=== PATIENT | male | born 2000 | race Caucasian/White ===

== ENCOUNTER 2019-09-22 19:19 | Inpatient (IN) | payer OTHER, SELFPAY ==
[2019-09-22 19:20] VITALS: BP 137/77; PULSE 82; RESP 18; TEMP 36.7; O2SAT 100; BMI 21.9
--- NOTE | 2019-09-22 19:39 | ED.DCSUM_ITS ---
- ER Visit Summary Date of Service: 09/22/19 Chief Complaint: Abdominal pain History of Present Illness: The patient is a 19 M who presents with abdominal pain, nausea, vomiting, and diarrhea for the past 2 weeks. Patient states the pain became worse yesterday and is been constant. Patient states the pain is been intermittent prior to that. Patient has been seen twice at [facility]. Patient had a CT scan done there 2 weeks ago and was normal. Patient was seen there earlier today and had lab work drawn which was normal. Patient states she was given a prescription for Bentyl which she has been taking with no relief. Patient states his pain is worse after eating certain foods. Patient describes the pain is sharp. Patient states pain is worse of the left upper quadrant. Patient admits to nausea and vomiting but denies any hematemesis or coffee-ground emesis. Patient admits to diarrhea but denies any melena or hematochezia. Patient denies any dysuria or hematuria. Physical Examination: Vital signs are stable. Patient is afebrile. Patient is in no acute distress. Oral mucosa is pink and moist. Oropharynx is clear. Neck is supple. Trachea is midline. There is no JVD. Heart was regular rate and rhythm. Lungs are clear and equal bilateral. Abdomen is soft. Bowel sounds are normal. There is left upper quadrant tenderness. There is voluntary guarding on exam. There is no rebound. Cranial nerves II through XII are intact. There are no focal motor or sensory deficits noted. Extremities are intact. There is no calf tenderness or edema. Test Results: CBC shows a mild leukocytosis of 11.3. Comprehensive metabolic p rofile showed a slightly elevated total bilirubin of 1.7. Urinalysis was within normal limits. Acute abdominal x-rays were obtained. There is probable ileus however a early small bowel obstruction is unable to be excluded. CT scan of the abdomen pelvis was obtained. There is small bowel narrowing at the terminal ileum. There is some thickening of the distal small bowel questionable Crohn's. These were interpreted by the radiologist and reviewed by myself. Emergency Department Course and Treatment: Patient was given IV fluids, morphine, and Zofran initially. Patient was given repeat doses of morphine due to persistent pain. Case was discussed with Dr. Maldonado, surgeon on-call. He recommended admitting to the hospitalist and will be available for consult if they want. He had no further recommendations. Case was discussed with the hospitalist. He will admit the patient to his service. Patient and family understood and were agreeable with the plan. All questions were answered. Disposition: Admit to hospital Impression: 1. Small bowel obstruction This note was generated with [employer] dictation software. It may contain incorrect words, spelling, and punctuation that were not noted in review of the chart prior to signing ED Disposition - Plan for ED Patient: Disposition: Acute Care Hospital [facility] Diagnosis: Small bowel obstruction Referrals: Ciaran Lombardo MD [STAFF PHYSICIAN] -
[2019-09-22] MEDS: Ondansetron 4 MG/2 ML Vial IV (19:57)
[2019-09-22] MEDS: 0.9% Normal Saline 1,000 ML 1000 ML IV (19:57)
[2019-09-22] MEDS: Morphine 4 MG/ML Syringe IV ×3 (19:58→23:17)
[2019-09-22 20:07] LABS: Absolute Lymphocyte Count 2.48 X10^3/uL (0.83-4.51); Absolute Neutrophil Count 7.2 X10^3/uL (2.0-7.7); Basophil# 0.03 X10^3/uL; Basophil% 0.3 % (0-1); Eosinophil# 0.26 X10^3/uL; Eosinophils% 2.3 % (0-5); Hematocrit 47.5 % (40-54); Hemoglobin 16.4 g/dL (13.0-16.5); Lymphocyte # 2.48 X10^3/ul (4.0); Lymphocyte % 21.9 % (19-41); Mean Corp Hgb Conc 34.5 g/dL (32-36); Mean Corpuscular Hgb 28.4 pg (27.0-32.0); Mean Corpuscular Volume 82.3 fL (80-94); Mean Platelet Vol. 9.7 fl (6.2-12.0); Monocyte# 1.29 X10^3/uL; Monocyte% 11.4 % (0-10); NRBC Flagged by Analyzer 0 % (0-5); Neutrophil # 7.22 X10^3/uL (2.7-7.7); Neutrophil % 63.8 % (47-70); Platelet Count 288 K/mm3 (150-450); RBC Distribution Width CV 12.2 % (11.6-14.6); RBC Distribution Width SD 36.7 fl (35.1-43.9); Red Blood Count 5.77 M/mm3 (4.6-6.2); White Blood Count 11.3 K/mm3 (4.4-11.0)
--- NOTE | 2019-09-22 20:10 | RAD_ITS ---
STUDY: X-RAY - ACUTE ABDOMINAL SERIES REASON FOR EXAM: Male, 19 years old. abdomen pain, vomiting TECHNIQUE: Single view of the chest. Supine, and upright view(s) of the abdomen were obtained. COMPARISON: None. FINDINGS: The lungs are clear and expanded. Normal size heart. Normal mediastinum and esperanza. Normal visualized pulmonary arteries. Normal visualized aortic arch and descending thoracic aorta. Stomach is distended demonstrating air-fluid level. There are also multiple loops of mildly distended small bowel with air-fluid levels. There is fecal material noted within the right colon. This most likely represents an ileus although early or partial small bowel obstruction is not entirely excluded. Recommend clinical correlation and follow-up studies The soft tissue structures of the abdomen and pelvis are unremarkable. Normal visualized osseous structures. RAD/Acute Abdomen Inc Chest IMPRESSION: Probable ileus. Cannot definitively exclude early small bowel obstruction. Clinical correlation recommended Electronically Signed: Macho Lepe MD at 20:23 EDT , Service support ,
[2019-09-22 20:24] LABS: ALB/GLOB Ratio 1.3 RATIO (0.9-2.4); AST(SGOT) 13 U/L (15-37); Alanine Aminotransfer ALT/SGPT 19 U/L (16-61); Albumin, Serum 4.2 g/dL (3.2-5.0); Alkaline Phosphatase 94 U/L (45-117); Anion Gap 8 (5-15); BUN 14 mg/dL (7-18); BUN/Creat Ratio 13.5 RATIO (10-20); Calcium,Total 9.2 mg/dL (8.5-10.1); Chloride 107 mmol/L (98-107); Creatinine, Serum 1.04 mg/dL (0.70-1.30); EST Glomerular Filtration Rate 96 mL/min (>60); Est Glom Filt Rate - Afr Amer 116 mL/min (>60); Estimated Creatinine Clearance 113.63 ml/min; Globulin 3.3 g/dL (2.2-4.2); Glucose 93 mg/dL (74-106); Lipase 107 U/L (73-393); Potassium 3.5 mmol/L (3.5-5.1); Protein, Total 7.5 g/dL (6.4-8.2); Sodium Level 142 mmol/L (136-145)
[2019-09-22 20:28] LABS: Bacteria 0 SEEN /hpf (None Seen); Mucous, Urine 0 SEEN /hpf (<or=2+)
[2019-09-22 20:34] LABS: Color, Urine Yellow (Yellow); Glucose, Dipstick Normal (Normal); Ketone-Dipstick 5 mg/dl (Negative); Leukocyte Esterase-Dipstick Negative /ul (Negative); Nitrite-Dipstick Negative (Negative); Occult Blood-Urine 25 /ul (Negative); Protein-Dipstick 15 mg/dl (Negative); Urine Bilirubin Dipstick Negative (Negative); Urine Clarity Clear (Clear); Urine Urobilinogen Normal (Normal)
--- NOTE | 2019-09-22 20:38 | CT_ITS ---
STUDY: CT ABDOMEN AND PELVIS WITH CONTRAST REASON FOR EXAM: Male, 19 years old. Increased abdominal pain for 1 month. Nausea, vomiting and diarrhea. RADIATION DOSAGE (If Supplied By Facility): CTDIvol = ( 10.61 ) mGy, DLP = ( 579.53 ) mGycm TECHNIQUE: Transaxial images were obtained from the dome of the diaphragm to the symphysis pubis without oral contrast. Oral and amp; IV Gastrografin and amp; 100mL Isovue-370 was administered. Sagittal and coronal images were reconstructed. Individualized dose optimization techniques were used for this CT. COMPARISON: Acute abdominal series, September 22, 2019. FINDINGS: The visualized lung bases are unremarkable. The visualized portions of the heart are within normal limits. Normal liver. Normal gallbladder and extrahepatic biliary system. Normal spleen. Normal pancreas. Normal bilateral adrenal glands. Normal right kidney. Normal left kidney. The stomach is distended with fluid and debris. The distal stomach is compressed against the pancreatic head by a dilated loop of small bowel. There is diffusely dilated loops of small bowel without wall thickening. The distal small bowel loops demonstrate fecalization of their contents. The terminal ileum demonstrates normal air-filled lumen with thickened wall. The proximal colon is nondistended. There is no evidence of mass. Minimal air and feces is seen in the rectosigmoid colon. There is non-visualization of the appendix. Normal abdominal aorta. Normal inferior vena cava. Normal retroperitoneum. Normal urinary bladder. Normal prostate. There is minimal free fluid in the posterior cul-de-sac. No free air is seen within the peritoneal cavity. Normal abdominal wall. Normal osseous structures. CT/Abdomen/Pelvis WITH Contrast IMPRESSION: 1. No small bowel dilatation to the terminal ileum which appears to be thick walled and narrowed. Question Crohn''s disease. 2. Distended stomach. This is thought to be secondary to small bowel obstruction. 3. Otherwise normal CT of the abdomen and pelvis. Electronically Signed: Mariano Burnham DO at 22:58 EDT Tel [phone], Service support ,
[2019-09-22 20:57] LABS: Squamous Epithelial Cells - UA 0-5 SEEN /hpf (0-5)
[2019-09-22 20:58] LABS: Red Blood Cells-Urine 0-5 SEEN /hpf (0-5); White Blood Cells 0-5 SEEN /hpf (0-5)
[2019-09-22 21:00] LABS: Differential Comment SCANNED
[2019-09-22 23:02] VITALS: BP 140/83; PULSE 66; RESP 16; O2SAT 100
--- NOTE | 2019-09-22 23:27 | HP.PCM_ITS ---
Problem List (1) Crohn's disease Status: Acute History of Present Illness Date of Admission: 09/22/19 Chief Complaint: Abdominal pain The patient is a 19 year old previously healthy male who presents at the emergency department with 1 month history of excruciating left upper quadrant abdominal pain that radiates to his right upper quadrant. Associated with symptoms is nausea, vomiting and diarrhea. Patient was seen in our hospital [place] and he was prescribed Bentyl.. About 2 and half weeks ago he went to [facility] emergency department where a CT scan of his abdomen was done. Reportedly CT scan was unremarkable. Also lab work at that time was unremarkable. The day of presentation patient again went to a [facility] ED where lab work was unremarkable. Reportedly he received a Toradol. Patient is unsure whether he received any other prescribed home medication. However his father that patient might have been giving Bentyl again. At the emergency department ([facility]) abdomen pelvis CT showed questionable Crohn disease at the terminal ileum; small bowel obstruction; and distended stomach. Emergent department doctor discussed the case with a general surgeon at our hospital. Per discussion between emergency department doctor and general surgeon patient may not be a candidate of surgery. However General Surgery will follow if consulted by medicine. Past Medical History Medical History: Medical History (Last Reviewed 09/23/19 @ 06:[address] Jasper Atwood MD) No previous medical history Allergies No Known Allergies Allergy (Verified 09/22/19 19:22) Home Medications: Ambulatory Orders Medication Instructions Recorded NK 09/23/19 Surgical History: no surgical history Smoking Status: Current some day smoker Alcohol: Occasional - *Family History Maternal Family History: Family History (Last Reviewed 09/23/19 @ 06:[address] Jasper Atwood MD) Aunt Heart disease History Items: Heart Disease Paternal Family History: Family History (Last Reviewed 09/23/19 @ 06:[address] Jasper Atwood MD) Aunt Heart disease History Items: - - Crohn's disease; peptic ulcer disease Review of Systems Constitutional: Denies: Chills, Fever, Weight Change HEENT: Denies: Head Aches, Sinus Congestion, Sinus Drainage Cardiovascular: Denies: Chest Pain, Palpitations Respiratory: Denies: Cough, Shortness of breath at rest, Sputum production Gastrointestinal: Reports: Abdominal Pain, Diarrhea, Nausea, Vomiting Genitourinary: Denies: Dysuria Musculoskeletal: Denies: Joint Pain, Joint Tenderness Skin: Denies: Rash, Wounds Neurological: Denies: Numbness, Tingling, Focal weakness Psychiatric: Denies: Anxiety, Depression, Homicidal Ideations, Suicidal Ideations Hematologic/ Lymphatic: Denies: Easy Bruising, Easy Bleeding VTE Information - Inpt Only VTE Present on Admission: No VTE Mechan Device Prophylaxis: None VTE Pharm Prophylaxis ordered?: Yes Patient Problems: Active and Suspected Problems (Last Updated 09/23/19 @ 06:[address] Jasper Atwood MD) Small bowel obstruction (Acute) Crohn's disease (Acute) - Physical Exam Vitals/I&O's: Vital Signs Temp Pulse Resp BP Pulse Ox 98.1 F 66 16 140/83 H 100 09/22/19 19:20 09/22/19 23:02 09/22/19 23:02 09/22/19 23:02 09/22/19 23:02 Oxygen Delivery Method Room Air Weight: 71.5 kg Body Mass Index (BMI) 21.9 Intake and Output for Last 24 Hours 09/20/19 09/21/19 09/22/19 23:59 23:59 23:59 Intake Total 1000 / 1000 Balance 1000 / 1000 General: Alert, Oriented x3, Cooperative HEENT: Atraumatic, PERRLA, EOMI, Normocephalic Neck: Supple, No JVD, Negative Carotid Bruits Lungs: Clear to auscultation, Normal air movement, No rhonchi, No wheeze, No rales Cardiovascular: Regular rate, Regular Rhythm, Normal S1, Normal S2, No murmurs Abdomen: Bowel Sounds Present, Soft, Tender Extremities: No edema, Capillary Refill Less than 3 Seconds Skin: No rashes, No breakdown Musculoskeletal: No Tenderness to Palpation of Joints or Extremities Neurological: Cranial nerves II-XII grossly intact Psych/Mental Status: Normal Affect, Appropriate Laboratory Results 09/22/19 20:00: WBC 11.3 H, RBC 5.77, Hgb 16.4, Hct 47.5, MCV 82.3, MCH 28.4, MCHC 34.5, RDW Std Deviation 36.7, RDW Coeff of [place]ira 12.2, Plt Count 288, MPV 9.7, Immature Gran % (Auto) 0.300, Neut % (Auto) 63.8, Lymph % (Auto) 21.9, [place] % (Auto) 11.4 H, Eos % (Auto) 2.3, Baso % (Auto) 0.3, Absolute Neuts (auto) 7.2, Absolute Lymphs (auto) 2.48, Nucleated RBC % 0, Differential Comment SCANNED 09/22/19 20:00: Sodium 142, Potassium 3.5, Chloride 107, Carbon Dioxide 27.0, Anion Gap 8, BUN 14, Creatinine 1.04, Estim Creat Clear Calc 113.63, Est GFR (MDRD) Af Amer 116, Est GFR (MDRD) Non-Af 96, BUN/Creatinine Ratio 13.5, Glucose 93, Calcium 9.2, Total Bilirubin 1.70 H, AST 13 L, ALT 19, Alkaline Phosphatase 94, Total Protein 7.5, Albumin 4.2, Globulin 3.3, Albumin/Globulin Ratio 1.3, Lipase 107 09/22/19 20:21: Urine Color Yellow, Urine Clarity Clear, Urine pH 6.0, Ur Specific [place] 1.010, Urine Protein 15 H, Urine Glucose (UA) Normal, Urine Ketones 5 H, Urine Occult Blood 25 H, Urine Nitrite Negative, Urine Bilirubin Negative, Urine Urobilinogen Normal, Ur Leukocyte Esterase Negative, Urine RBC 0-5 SEEN, Urine WBC 0-5 SEEN, Ur Squamous Epith Cells 0-5 SEEN, Urine Bacteria 0 SEEN, Urine Mucus 0 SEEN Assessment/Plan All Active Problems (Last Updated 09/23/19 @ 06:[address] Jasper Atwood MD) Small bowel obstruction (Acute) Crohn's disease (Acute) The patient is a 19 year old previously healthy male who presents emergency department with 1 month history of excruciating left upper quadrant abdominal pain that radiates to his right upper quadrant; nausea, vomiting and diarrhea; and radiographic evidence of probable Crohn disease and small bowel obstruction Probable Crohn disease small bowel obstruction We will keep patient n.p.o. Gentle IV hydration of sodium chloride with 40 of potassium. Pain control with PRN Toradol IV; and PRN morphine IV. Antiemetics with PRN Zofran IV and PRN Compazine. Will start patient on Solu-Medrol IV for probable Crohn's. Enteropathogenic panel and ova and parasites ordered. Upon discharge consider GI referral for possible colonoscopy to confirm Crohn's or otherwise. Consider serial x-rays to follow resolution of small bowel obstruction. DVT prophylaxis Possible Crohn's makes patients at increased risk for DVT. Lovenox prophylaxis ordered. Inpatient E&M: 85391 Init Hosp L3
[2019-09-22 23:53] VITALS: BP 140/83; PULSE 66; RESP 16; TEMP 36.7; O2SAT 100
[2019-09-23 00:11] VITALS: BP 141/97; PULSE 75; RESP 16; TEMP 36.4; O2SAT 100; BMI 21.9
[2019-09-23] MEDS: Ketorolac 15 MG/ML Vial IV ×2 (00:48→13:49)
[2019-09-23] MEDS: 0.9% Saline Lock 10 ML Syringe IV ×6 (00:57→23:31)
[2019-09-23] MEDS: Potassium Chloride 40 MEQ in 0.9% Normal Saline 1,000 ML 75 MEQ IV (00:58)
[2019-09-23 01:01] VITALS: RESP 16
[2019-09-23 03:42] VITALS: BP 118/55; PULSE 67; RESP 16; TEMP 37; O2SAT 97
--- NOTE | 2019-09-23 06:00 | CON.PCM_ITS ---
Problem List (1) Small bowel obstruction Status: Acute Reason for Consult Date of Consultation: 09/23/19 History of Present Illness: The patient is a 19 year old M who presented to the [facility] emergency room with a 4-week history of illness. I have been asked by primary care to provide surgical consultation regarding findings consistent with small bowel obstruction and electronic copy of my consult will be present within his charting. 19-year-old male. For 4 weeks he has felt unwell with diffuse abdominal cramping. He has had a 10 pound weight loss. He has had nausea with some vomiting particularly 24 hours ago. He has had some minimal loose stool. He was seen at [facility] [address] weeks [address] with a CT scan suggested to be normal. I do not have records whether that was done with contrast. He was seen there again yesterday and then presented to the [facility] ER. His white blood cell count 11.3 with a notably elevated hemoglobin of 16.4 and hematocrit of 47.5 with a platelet count 288,000 no left shift. BUN is 14 creatinine 1.04. Liver function tests are normal except for an isolated total bilirubin of 1.7. Lipase is 107. A ESR was not obtained. A CT scan was obtained there is felt to be small bowel dilatation all the way to the terminal ileum where there appears to be thick walled and narrowed small bowel felt to be quite consistent with Crohn's disease. The patient adds that there is an additional family history of Crohn's disease and a maternal grandparent of his father's. The other remarkable portion of his CT scan is that there is fecalization of multiple loops of small bowel and stomach He currently states that he is not currently nauseated. He is not currently having any abdominal pain. He has not had stool or flatus for 24 hours. Past Medical History Allergies No Known Allergies Allergy (Verified 09/22/19 19:22) Home Medications: Ambulatory Orders Medication Instructions Recorded NK 09/23/19 Smoking Status: Current some day smoker Tobacco Use: Cigarettes Review of Systems Constitutional: Reports: Anorexia, Weight Change, Fatigue. Denies: Chills, Fever, Night Sweats Cardiovascular: Denies: Chest Pain Respiratory: Denies: Cough Gastrointestinal: Reports: Diarrhea, Nausea, Vomiting. Denies: Melena Musculoskeletal: Denies: Leg Pain Neurological: Denies: Difficulty swallowing Endocrine: Reports: Change in Body Habitus Hematologic/ Lymphatic: Denies: Adenopathy Patient Problems: Active and Suspected Problems Small bowel obstruction (Acute) - Physical Exam Vitals/I&O's: Vital Signs Temp Pulse Resp BP Pulse Ox 98.6 F 67 16 118/55 L 97 09/23/19 03:42 09/23/19 03:42 09/23/19 03:42 09/23/19 03:42 09/23/19 03:42 Oxygen Delivery Method Room Air Weight: 156 lb 15.506 oz Body Mass Index (BMI) 21.9 Intake and Output for Last 24 Hours 09/21/19 09/22/19 09/23/19 23:59 23:59 23:59 Intake Total 1000 / 1000 0 / 0 Output Total 400 / 400 Balance 1000 / 1000 -400 / -400 General: Alert, Oriented x3, Cooperative, No apparent distress HEENT: Atraumatic Oral: Dry Mucosa Lungs: Clear to auscultation, Normal air movement Cardiovascular: Regular rate, Regular Rhythm Abdomen: Soft, Non Tender, Bowel Sounds Not Present, Distended Extremities: No Calf Tenderness Musculoskeletal: No Muscle Wasting Psych/Mental Status: Normal Affect Laboratory Results 09/22/19 20:00: WBC 11.3 H, RBC 5.77, Hgb 16.4, Hct 47.5, MCV 82.3, MCH 28.4, MCHC 34.5, RDW Std Deviation 36.7, RDW Coeff of Amira 12.2, Plt Count 288, MPV 9.7, Immature Gran % (Auto) 0.300, Neut % (Auto) 63.8, Lymph % (Auto) 21.9, [place] % (Auto) 11.4 H, Eos % (Auto) 2.3, Baso % (Auto) 0.3, Absolute Neuts (auto) 7.2, Absolute Lymphs (auto) 2.48, Nucleated RBC % 0, Differential Comment SCANNED 09/22/19 20:00: Sodium 142, Potassium 3.5, Chloride 107, Carbon Dioxide 27.0, Anion Gap 8, BUN 14, Creatinine 1.04, Estim Creat Clear Calc 113.63, Est GFR (MDRD) Af Amer 116, Est GFR (MDRD) Non-Af 96, BUN/Creatinine Ratio 13.5, Glucose 93, Calcium 9.2, Total Bilirubin 1.70 H, AST 13 L, ALT 19, Alkaline Phosphatase 94, Total Protein 7.5, Albumin 4.2, Globulin 3.3, Albumin/Globulin Ratio 1.3, Lipase 107 09/22/19 20:21: Urine Color Yellow, Urine Clarity Clear, Urine pH 6.0, Ur Specific [place] 1.010, Urine Protein 15 H, Urine Glucose (UA) Normal, Urine Ketones 5 H, Urine Occult Blood 25 H, Urine Nitrite Negative, Urine Bilirubin Negative, Urine Urobilinogen Normal, Ur Leukocyte Esterase Negative, Urine RBC 0-5 SEEN, Urine WBC 0-5 SEEN, Ur Squamous Epith Cells 0-5 SEEN, Urine Bacteria 0 SEEN, Urine Mucus 0 SEEN Current Medications Enoxaparin Sodium (Lovenox) 40 mg SC DAILY [facility] Glucagon () 1 mg IM .X1 PRN PRN Reason: Hypoglycemia Potassium Chloride 40 meq/ (Sodium Chloride) 1,020 mls @ 75 mls/hr IV .[id number] [facility] Stop: 09/24/19 02:50 Last Admin: 09/23/19 00:58 Dose: 75 mls/hr Documented by: Dextrose (Dextrose 10%-Water) 250 mls @ 999 mls/hr IV .Q16M PRN; Protocol PRN Reason: HYPOGLYCEMIA Ketorolac Tromethamine (Toradol (Bkc)) 15 mg IV Q6H PRN PRN PRN Reason: pain 6-7/10 Stop: 09/28/19 00:11 Last Admin: 09/23/19 00:48 Dose: 15 mg Documented by: Methylprednisolone (Solu-Medrol) 40 mg IV Q8 RELL Last Admin: 09/23/19 05:48 Dose: 40 mg Documented by: Morphine Sulfate () 2 mg IV Q3H PRN PRN PRN Reason: Pain Score 8-10/10 Nutritional Formula (Lactose Free) (Ensure Enlive) 120 ml PO 4X/DAY [facility] Ondansetron HCl (Zofran) 4 mg IV Q6H PRN PRN PRN Reason: NAUSEA/VOMITING Prochlorperazine Edisylate (Compazine Iv) 5 mg IV Q4H PRN PRN PRN Reason: Breakthrough nausea/vomiting Sodium Chloride () 10 - 40 ml IV UD PRN PRN Reason: SALINE FLUSH Last Admin: 09/23/19 05:50 Dose: 10 ml Documented by: Assessment/Plan All Active Problems Small bowel obstruction (Acute) 19-year-old gentleman with a 4-week history of illness with progressive symptoms with the past 2 weeks with history and clinical exam and imaging and laboratory all consistent with Crohn's disease. He does not have an acute surgical abdomen. I do not believe that he has enteric pathogen and would consider saving PPE's I do not believe that he will require surgical intervention. I do recommend gastroenterology consultation as an inpatient if he does not improve and certainly as an outpatient for ongoing care. I will continue to follow loosely at this time but am not currently considering him a surgical candidate. The degree of stool within small bowel and stomach is impressive. He is not currently nauseated and not currently having abdominal pain so I do not believe an NG tube is mandatory at this time but I would not recommend initiating a diet until the patient has resumption of bowel function. He states no stool or flatus over the past 24 hours. Appreciate the opportunity of assisting with his surgical care. Jayson Maldonado M.D., F.A.C.S.
[2019-09-23 06:08] LABS: Absolute Neutrophil Count 7.3 X10^3/uL (2.0-7.7); Basophil# 0.02 X10^3/uL; Basophil% 0.2 % (0-1); Eosinophil# 0.02 X10^3/uL; Eosinophils% 0.2 % (0-5); Hematocrit 46.2 % (40-54); Hemoglobin 15.6 g/dL (13.0-16.5); Lymphocyte % 11.7 % (19-41); Mean Corp Hgb Conc 33.8 g/dL (32-36); Mean Corpuscular Hgb 28.5 pg (27.0-32.0); Mean Corpuscular Volume 84.5 fL (80-94); Mean Platelet Vol. 9.9 fl (6.2-12.0); Monocyte# 0.19 X10^3/uL; Monocyte% 2.2 % (0-10); NRBC Flagged by Analyzer 0 % (0-5); Neutrophil # 7.29 X10^3/uL (2.7-7.7); Neutrophil % 85.5 % (47-70); Platelet Count 268 K/mm3 (150-450); RBC Distribution Width CV 12.4 % (11.6-14.6); Red Blood Count 5.47 M/mm3 (4.6-6.2); White Blood Count 8.5 K/mm3 (4.4-11.0)
[2019-09-23 06:21] LABS: Erythrocyte Sedimentation Rate 2 mm/hr (0-15)
[2019-09-23 06:42] LABS: ALB/GLOB Ratio 1.1 RATIO (0.9-2.4); AST(SGOT) 12 U/L (15-37); Alanine Aminotransfer ALT/SGPT 18 U/L (16-61); Albumin, Serum 3.7 g/dL (3.2-5.0); Alkaline Phosphatase 98 U/L (45-117); Anion Gap 5 (5-15); BUN 14 mg/dL (7-18); Calcium,Total 8.7 mg/dL (8.5-10.1); Chloride 108 mmol/L (98-107); Creatinine, Serum 0.93 mg/dL (0.70-1.30); EST Glomerular Filtration Rate 109 mL/min (>60); Est Glom Filt Rate - Afr Amer 132 mL/min (>60); Estimated Creatinine Clearance 126.54 ml/min; Globulin 3.3 g/dL (2.2-4.2); Glucose 140 mg/dL (74-106); Potassium 4.6 mmol/L (3.5-5.1); Sodium Level 138 mmol/L (136-145)
[2019-09-23] MEDS: 0.9% Normal Saline 1,000 ML 100 ML IV ×2 (10:15→23:14)
[2019-09-23 10:22] VITALS: BP 119/66; PULSE 70; RESP 16; TEMP 37; O2SAT 99
[2019-09-23] MEDS: metroNIDAZOLE 500 MG/100 ML BAG 100 MG IV ×2 (10:54→23:25)
[2019-09-23] MEDS: Ciprofloxacin 400 MG/200 ML BAG 200 MG IV ×2 (12:19→23:15)
--- NOTE | 2019-09-23 12:19 | PN_ITS ---
<Orlando Cheng - Last Filed: 09/23/19 12:19> Reason for Visit: abd pain Subjective: Abd pain improved. mild LLQ mostly, some diffuse pain. Ongoing tenderness. NO fever/chills. No bowel movement or flatus today. No nausea or vomiting. Vitals/I&O's: Vital Signs Temp Pulse Resp BP Pulse Ox 98.6 F 70 16 119/66 99 09/23/19 10:22 09/23/19 10:22 09/23/19 10:22 09/23/19 10:22 09/23/19 10:22 Oxygen Delivery Method Room Air Weight: 156 lb 15.506 oz Body Mass Index (BMI) 21.9 Intake and Output for Last 24 Hours 09/21/19 09/22/19 09/23/19 23:59 23:59 23:59 Intake Total 1000 / 1000 843.33 / 843.33 Output Total 400 / 400 Balance 1000 / 1000 443.33 / 443.33 General: Alert, Oriented x3, Cooperative HEENT: Atraumatic, PERRLA, EOMI, Normocephalic Neck: Supple, No JVD, Negative Carotid Bruits Lungs: Clear to auscultation, Normal air movement Cardiovascular: Regular rate, No murmurs Abdomen: Bowel Sounds Not Present, Guarding, Tender Extremities: No edema, Capillary Refill Less than 3 Seconds Skin: No rashes, No breakdown Musculoskeletal: No Tenderness to Palpation of Joints or Extremities Neurological: Cranial nerves II-XII grossly intact Psych/Mental Status: Normal Affect, Appropriate, Alert and oriented to time, place, person, mood and affect Laboratory Results 09/22/19 20:00: WBC 11.3 H, RBC 5.77, Hgb 16.4, Hct 47.5, MCV 82.3, MCH 28.4, MCHC 34.5, RDW Std Deviation 36.7, RDW Coeff of Amira 12.2, Plt Count 288, MPV 9.7, Immature Gran % (Auto) 0.300, Neut % (Auto) 63.8, Lymph % (Auto) 21.9, [place] % (Auto) 11.4 H, Eos % (Auto) 2.3, Baso % (Auto) 0.3, Absolute Neuts (auto) 7.2, Absolute Lymphs (auto) 2.48, Nucleated RBC % 0, Differential Comment SCANNED 09/22/19 20:00: Sodium 142, Potassium 3.5, Chloride 107, Carbon Dioxide 27.0, Anion Gap 8, BUN 14, Creatinine 1.04, Estim Creat Clear Calc 113.63, Est GFR (MDRD) Af Amer 116, Est GFR (MDRD) Non-Af 96, BUN/Creatinine Ratio 13.5, Glucose 93, Calcium 9.2, Total Bilirubin 1.70 H, AST 13 L, ALT 19, Alkaline Phosphatase 94, Total Protein 7.5, Albumin 4.2, Globulin 3.3, Albumin/Globulin Ratio 1.3, Lipase 107 09/22/19 20:21: Urine Color Yellow, Urine Clarity Clear, Urine pH 6.0, Ur Specific [place] 1.010, Urine Protein 15 H, Urine Glucose (UA) Normal, Urine Ketones 5 H, Urine Occult Blood 25 H, Urine Nitrite Negative, Urine Bilirubin Negative, Urine Urobilinogen Normal, Ur Leukocyte Esterase Negative, Urine RBC 0-5 SEEN, Urine WBC 0-5 SEEN, Ur Squamous Epith Cells 0-5 SEEN, Urine Bacteria 0 SEEN, Urine Mucus 0 SEEN 09/23/19 05:50: WBC 8.5, RBC 5.47, Hgb 15.6, Hct 46.2, MCV 84.5, MCH 28.5, MCHC 33.8, RDW Std Deviation 38.0, RDW Coeff of Amira 12.4, Plt Count 268, MPV 9.9, Immature Gran % (Auto) 0.200, Neut % (Auto) 85.5 H, Lymph % (Auto) 11.7 L, [place] % (Auto) 2.2, Eos % (Auto) 0.2, Baso % (Auto) 0.2, Absolute Neuts (auto) 7.3, Absolute Lymphs (auto) 1.00, Nucleated RBC % 0 09/23/19 05:50: Sodium 138, Potassium 4.6, Chloride 108 H, Carbon Dioxide 25.0, Anion Gap 5, BUN 14, Creatinine 0.93, Estim Creat Clear Calc 126.54, Est GFR (MDRD) Af Amer 132, Est GFR (MDRD) Non-Af 109, BUN/Creatinine Ratio 15.0, Glucose 140 H, Calcium 8.7, Total Bilirubin 1.40 H, AST 12 L, ALT 18, Alkaline Phosphatase 98, Total Protein 7.0, Albumin 3.7, Globulin 3.3, Albumin/Globulin Ratio 1.1 09/23/19 05:50: ESR 2 Current Medications Glucagon () 1 mg IM .X1 PRN PRN Reason: Hypoglycemia Dextrose (Dextrose 10%-Water) 250 mls @ 999 mls/hr IV .Q16M PRN; Protocol PRN Reason: HYPOGLYCEMIA Sodium Chloride () 1,000 mls @ 100 mls/hr IV .Q10H [facility] Last Infusion: 09/23/19 10:54 Dose: 0 mls/hr Documented by: Pantoprazole Sodium 40 mg/ (Sodium Chloride) 110 mls @ 330 mls/hr IV Q12 [facility] Last Infusion: 09/23/19 10:37 Dose: Infused Documented by: Metronidazole (Flagyl) 500 mg in 100 mls @ 100 mls/hr IV Q8 [facility] Last Admin: 09/23/19 10:54 Dose: 100 mls/hr Documented by: Ciprofloxacin (Cipro) 400 mg in 200 mls @ 200 mls/hr IV Q12 [facility] Ketorolac Tromethamine (Toradol (Bkc)) 15 mg IV Q8 [facility] Stop: 09/28/19 08:11 Morphine Sulfate () 2 mg IV Q3H PRN PRN PRN Reason: Pain Score 8-10/10 Nutritional Formula (Lactose Free) (Ensure Enlive) 120 ml PO 4X/DAY [facility] Last Admin: 09/23/19 08:10 Dose: Not Given Documented by: Ondansetron HCl (Zofran) 4 mg IV Q6H PRN PRN PRN Reason: NAUSEA/VOMITING Prochlorperazine Edisylate (Compazine Iv) 5 mg IV Q4H PRN PRN PRN Reason: Breakthrough nausea/vomiting Sodium Chloride () 10 - 40 ml IV UD PRN PRN Reason: SALINE FLUSH Last Admin: 09/23/19 05:50 Dose: 10 ml Documented by: STROKE Vital Signs/Narrative: Vital Signs Temp Pulse Resp BP Pulse Ox 09/23/19 10:22 98.6 F 70 16 119/66 99 Medical Necessity - Tobacco Use Smoking Status: Current some day smoker Tobacco Use: Cigarettes Assessment/Plan 1. Crohn's, small bowel obstruction - pain somewhat improved. No nausea. No BM/flatus. No fever/chills. Surgery following. Solumedrol stopped. Continue NPO, IV fluids, supportive care. Leukocytosis resolved. Continue flagyl/cipro. No fe ward. DVT ppx: lovenox DC planning: GI follow up at [facility]. This patient was seen by Orlando Cheng PA-C under the supervision of Dr. Smith. <SarahJeri E - Last Filed: 09/23/19 12:43> Vitals/I&O's: Vital Signs Temp Pulse Resp BP Pulse Ox 98.6 F 70 16 119/66 99 09/23/19 10:22 09/23/19 10:22 09/23/19 10:22 09/23/19 10:22 09/23/19 10:22 Oxygen Delivery Method Room Air Weight: 156 lb 15.506 oz Body Mass Index (BMI) 21.9 Intake and Output for Last 24 Hours 09/21/19 09/22/19 09/23/19 23:59 23:59 23:59 Intake Total 1000 / 1000 843.33 / 843.33 Output Total 400 / 400 Balance 1000 / 1000 443.33 / 443.33 Laboratory Results 09/22/19 20:00: WBC 11.3 H, RBC 5.77, Hgb 16.4, Hct 47.5, MCV 82.3, MCH 28.4, MCHC 34.5, RDW Std Deviation 36.7, RDW Coeff of Amira 12.2, Plt Count 288, MPV 9.7, Immature Gran % (Auto) 0.300, Neut % (Auto) 63.8, Lymph % (Auto) 21.9, [place] % (Auto) 11.4 H, Eos % (Auto) 2.3, Baso % (Auto) 0.3, Absolute Neuts (auto) 7.2, Absolute Lymphs (auto) 2.48, Nucleated RBC % 0, Differential Comment SCANNED 09/22/19 20:00: Sodium 142, Potassium 3.5, Chloride 107, Carbon Dioxide 27.0, Anion Gap 8, BUN 14, Creatinine 1.04, Estim Creat Clear Calc 113.63, Est GFR (MDRD) Af Amer 116, Est GFR (MDRD) Non-Af 96, BUN/Creatinine Ratio 13.5, Glucose 93, Calcium 9.2, Total Bilirubin 1.70 H, AST 13 L, ALT 19, Alkaline Phosphatase 94, Total Protein 7.5, Albumin 4.2, Globulin 3.3, Albumin/Globulin Ratio 1.3, Lipase 107 09/22/19 20:21: Urine Color Yellow, Urine Clarity Clear, Urine pH 6.0, Ur Specific [place] 1.010, Urine Protein 15 H, Urine Glucose (UA) Normal, Urine Ketones 5 H, Urine Occult Blood 25 H, Urine Nitrite Negative, Urine Bilirubin Negative, Urine Urobilinogen Normal, Ur Leukocyte Esterase Negative, Urine RBC 0-5 SEEN, Urine WBC 0-5 SEEN, Ur Squamous Epith Cells 0-5 SEEN, Urine Bacteria 0 SEEN, Urine Mucus 0 SEEN 09/23/19 05:50: WBC 8.5, RBC 5.47, Hgb 15.6, Hct 46.2, MCV 84.5, MCH 28.5, MCHC 33.8, RDW Std Deviation 38.0, RDW Coeff of Amira 12.4, Plt Count 268, MPV 9.9, Immature Gran % (Auto) 0.200, Neut % (Auto) 85.5 H, Lymph % (Auto) 11.7 L, [place] % (Auto) 2.2, Eos % (Auto) 0.2, Baso % (Auto) 0.2, Absolute Neuts (auto) 7.3, Absolute Lymphs (auto) 1.00, Nucleated RBC % 0 09/23/19 05:50: Sodium 138, Potassium 4.6, Chloride 108 H, Carbon Dioxide 25.0, Anion Gap 5, BUN 14, Creatinine 0.93, Estim Creat Clear Calc 126.54, Est GFR (MDRD) Af Amer 132, Est GFR (MDRD) Non-Af 109, BUN/Creatinine Ratio 15.0, Glucose 140 H, Calcium 8.7, Total Bilirubin 1.40 H, AST 12 L, ALT 18, Alkaline Phosphatase 98, Total Protein 7.0, Albumin 3.7, Globulin 3.3, Albumin/Globulin Ratio 1.1 09/23/19 05:50: ESR 2 Current Medications Glucagon () 1 mg IM .X1 PRN PRN Reason: Hypoglycemia Dextrose (Dextrose 10%-Water) 250 mls @ 999 mls/hr IV .Q16M PRN; Protocol PRN Reason: HYPOGLYCEMIA Sodium Chloride () 1,000 mls @ 100 mls/hr IV .Q10H [facility] Last Infusion: 09/23/19 10:54 Dose: 0 mls/hr Documented by: Pantoprazole Sodium 40 mg/ (Sodium Chloride) 110 mls @ 330 mls/hr IV Q12 [facility] Last Infusion: 09/23/19 10:37 Dose: Infused Documented by: Metronidazole (Flagyl) 500 mg in 100 mls @ 100 mls/hr IV Q8 [facility] Last Admin: 09/23/19 10:54 Dose: 100 mls/hr Documented by: Ciprofloxacin (Cipro) 400 mg in 200 mls @ 200 mls/hr IV Q12 [facility] Last Admin: 09/23/19 12:19 Dose: 200 mls/hr Documented by: Ketorolac Tromethamine (Toradol (Bkc)) 15 mg IV Q8 [facility] Stop: 09/28/19 08:11 Morphine Sulfate () 2 mg IV Q3H PRN PRN PRN Reason: Pain Score 8-10/10 Nutritional Formula (Lactose Free) (Ensure Enlive) 120 ml PO 4X/DAY [facility] Last Admin: 09/23/19 08:10 Dose: Not Given Documented by: Ondansetron HCl (Zofran) 4 mg IV Q6H PRN PRN PRN Reason: NAUSEA/VOMITING Prochlorperazine Edisylate (Compazine Iv) 5 mg IV Q4H PRN PRN PRN Reason: Breakthrough nausea/vomiting Sodium Chloride () 10 - 40 ml IV UD PRN PRN Reason: SALINE FLUSH Last Admin: 09/23/19 05:50 Dose: 10 ml Documented by: STROKE Vital Signs/Narrative: Vital Signs Temp Pulse Resp BP Pulse Ox 09/23/19 10:22 98.6 F 70 16 119/66 99 Assessment/Plan Hospitalist note: I am seeing this patient in conjunction with Orlando Cheng. I independently seen and examined the patient. Progress note above, laboratory data and imaging studies reviewed and I concur with the above treatment plan with the notes below. Today, patient reported diffuse abdominal pain, mainly periumbilical improved. Denied fever or chills. He has no bowel movement since yesterday morning and no flatus as well. Denied nausea or vomiting. His vital signs are stable. - Physical Exam General: Alert, Oriented x3, Cooperative, No apparent distress. HEENT: Atraumatic, PERRLA, EOMI. Neck: Supple, No JVD, Negative Carotid Bruits, Trachea Midline, Thyroid Normal. Lungs: Clear to auscultation, Normal air movement, No rhonchi, No wheeze, No rales. Cardiovascular: Regular rate, Regular Rhythm, Normal S1, Normal S2, PMI Normal. Abdomen: Bowel Sounds Present, Soft, minimal tender, Non-Distended, No Hepato-splenomegaly, no guarding or rigidity. Extremities: No clubbing, No cyanosis, No edema Skin: No rashes, No breakdown Neurological: Cranial nerves are intact, neuro grossly intact Vital Signs are stable. Assessment and plan: #1 abdominal pain/terminal ileitis: Crohn's disease is in the differential diagnosis but this ileitis can be caused by other etiologies such as infectious ileitis due to viruses or bacteria. Patient reported pain for the last several weeks with small amounts of loose stool, no bloody stool. Routine blood work was unremarkable. LFT and lipase were unremarkable except bilirubin which was 1.4 today. ESR was normal. Plan: Change IV fluids to normal saline, discontinue IV Solu-Medrol, start IV Flagyl and ciprofloxacin, change Toradol every 8 hours [id number], start IV Protonix. Patient will need referral to GI as outpatient for further evaluation. #2 probable small bowel obstruction: He is on n.p.o., IV fluids and IV pain medications. He has no bowel movement of breath since yesterday morning. General surgery on the case. Plan to continue same treatment, repeat KUB tomorrow morning. #3 DVT prophylaxis: Low risk patient, no prophylaxis indicated, ambulate. This note was generated with [employer] dictation software. It may contain incorrect words, spelling, and punctuation that were not noted in checking the note before signing. Inpatient E&M: 17113 Subs Hosp L2
--- NOTE | 2019-09-23 13:38 | CASEMGMT ---
RN CM in to discuss discharge planning with patient. Patient alert and oriented mother at bedside. Patient lives and works in [place] but plans to stay with parents at discharge. Patient is independent at home. No DME or HHC. Patient is established with Dr. Joseph Fraire for PCP. No needs or concerns identified at this time. Patient to discharge to patients home with family support and follow-up plans in place.
[2019-09-23 13:40] VITALS: BP 118/63; PULSE 69; RESP 16; TEMP 36.7; O2SAT 96
--- NOTE | 2019-09-23 15:55 | NURSING ---
PT AMBULATING IN [place], STATES HE IS FEELING SOMEWHAT BETTER.
--- NOTE | 2019-09-23 17:41 | NURSING ---
PT HAD 4 VERY SMALL, HARDENED PIECES OF STOOL, WITH APPARENT SMALL AMT OF BLOOD. PT EDUCATED ON NOT STRAINING, IMPORTANCE OF AMBULATION.
[2019-09-23 22:00] VITALS: BP 102/53; PULSE 65; RESP 16; TEMP 36.4; O2SAT 98
[2019-09-24] MEDS: Ketorolac 15 MG/ML Vial IV ×4 (00:22→22:55)
[2019-09-24 04:00] VITALS: BP 110/62; PULSE 52; RESP 16; TEMP 36.7; O2SAT 99
--- NOTE | 2019-09-24 06:07 | PN.SURG_ITS ---
Subjective: No nausea, no pain, very small stool - Physical Exam Vitals/I&O's: Vital Signs Temp Pulse Resp BP Pulse Ox 97.6 F L 65 16 102/53 L 98 09/23/19 22:00 09/23/19 22:00 09/23/19 22:00 09/23/19 22:00 09/23/19 22:00 Oxygen Delivery Method Room Air Weight: 156 lb 15.506 oz Body Mass Index (BMI) 21.9 Intake and Output for Last 24 Hours 09/22/19 09/23/19 09/24/19 23:59 23:59 23:59 Intake Total 1000 / 1000 2110.00 / 2110.00 410 / 410 Output Total 400 / 400 Balance 1000 / 1000 1710.00 / 1710.00 410 / 410 General: Alert, Oriented x3, Cooperative, No apparent distress Abdomen: Soft, Non Tender Laboratory Results 09/23/19 05:50: WBC 8.5, RBC 5.47, Hgb 15.6, Hct 46.2, MCV 84.5, MCH 28.5, MCHC 33.8, RDW Std Deviation 38.0, RDW Coeff of Amira 12.4, Plt Count 268, MPV 9.9, Immature Gran % (Auto) 0.200, Neut % (Auto) 85.5 H, Lymph % (Auto) 11.7 L, [place] % (Auto) 2.2, Eos % (Auto) 0.2, Baso % (Auto) 0.2, Absolute Neuts (auto) 7.3, Absolute Lymphs (auto) 1.00, Nucleated RBC % 0 09/23/19 05:50: Sodium 138, Potassium 4.6, Chloride 108 H, Carbon Dioxide 25.0, Anion Gap 5, BUN 14, Creatinine 0.93, Estim Creat Clear Calc 126.54, Est GFR (MDRD) Af Amer 132, Est GFR (MDRD) Non-Af 109, BUN/Creatinine Ratio 15.0, Glucose 140 H, Calcium 8.7, Total Bilirubin 1.40 H, AST 12 L, ALT 18, Alkaline Phosphatase 98, Total Protein 7.0, Albumin 3.7, Globulin 3.3, Albumin/Globulin Ratio 1.1 09/23/19 05:50: ESR 2 Current Medications Glucagon () 1 mg IM .X1 PRN PRN Reason: Hypoglycemia Dextrose (Dextrose 10%-Water) 250 mls @ 999 mls/hr IV .Q16M PRN; Protocol PRN Reason: HYPOGLYCEMIA Sodium Chloride () 1,000 mls @ 100 mls/hr IV .Q10H [facility] Last Admin: 09/23/19 23:14 Dose: 100 mls/hr Documented by: Pantoprazole Sodium 40 mg/ (Sodium Chloride) 110 mls @ 330 mls/hr IV Q12 [facility] Last Infusion: 09/24/19 00:15 Dose: Infused Documented by: Metronidazole (Flagyl) 500 mg in 100 mls @ 100 mls/hr IV Q8 [facility] Last Infusion: 09/24/19 00:25 Dose: Infused Documented by: Ciprofloxacin (Cipro) 400 mg in 200 mls @ 200 mls/hr IV Q12 [facility] Last Infusion: 09/24/19 02:40 Dose: Infused Documented by: Ketorolac Tromethamine (Toradol (Bkc)) 15 mg IV Q8 [facility] Stop: 09/28/19 08:11 Last Admin: 09/24/19 00:22 Dose: 15 mg Documented by: Morphine Sulfate () 2 mg IV Q3H PRN PRN PRN Reason: Pain Score 8-10/10 Nutritional Formula (Lactose Free) (Ensure Enlive) 120 ml PO 4X/DAY [facility] Last Admin: 09/23/19 23:41 Dose: Not Given Documented by: Ondansetron HCl (Zofran) 4 mg IV Q6H PRN PRN PRN Reason: NAUSEA/VOMITING Prochlorperazine Edisylate (Compazine Iv) 5 mg IV Q4H PRN PRN PRN Reason: Breakthrough nausea/vomiting Sodium Chloride () 10 - 40 ml IV UD PRN PRN Reason: SALINE FLUSH Last Admin: 09/23/19 23:31 Dose: 10 ml Documented by: Medical Necessity - Tobacco Use Smoking Status: Current some day smoker Tobacco Use: Cigarettes Assessment/Plan Since AXR has been ordered, will await results ESR was not elevated But other symptoms/findings do not suggest infective enteritis Will review images and then consider po
[2019-09-24] MEDS: metroNIDAZOLE 500 MG/100 ML BAG 100 MG IV ×3 (06:44→22:53)
[2019-09-24 08:21] LABS: Absolute Neutrophil Count 1.9 X10^3/uL (2.0-7.7); Basophil# 0.04 X10^3/uL; Basophil% 0.8 % (0-1); Eosinophils% 5.8 % (0-5); Hematocrit 38.9 % (40-54); Hemoglobin 12.7 g/dL (13.0-16.5); Lymphocyte % 42.6 % (19-41); Mean Corp Hgb Conc 32.6 g/dL (32-36); Mean Corpuscular Hgb 28.1 pg (27.0-32.0); Mean Corpuscular Volume 86.1 fL (80-94); Mean Platelet Vol. 10.3 fl (6.2-12.0); Monocyte# 0.69 X10^3/uL; Monocyte% 13.4 % (0-10); NRBC Flagged by Analyzer 0 % (0-5); Neutrophil # 1.92 X10^3/uL (2.7-7.7); Neutrophil % 37.2 % (47-70); Platelet Count 187 K/mm3 (150-450); RBC Distribution Width CV 13.1 % (11.6-14.6); RBC Distribution Width SD 40.4 fl (35.1-43.9); Red Blood Count 4.52 M/mm3 (4.6-6.2); White Blood Count 5.2 K/mm3 (4.4-11.0)
[2019-09-24] MEDS: 0.9% Normal Saline 1,000 ML 100 ML IV ×2 (09:23→22:51)
[2019-09-24] MEDS: Ciprofloxacin 400 MG/200 ML BAG 200 MG IV ×2 (10:01→23:02)
--- NOTE | 2019-09-24 11:00 | RAD_ITS ---
STUDY: X-RAY - ABDOMEN/PELVIS REASON FOR EXAM: Male, 19 years old. PROBABLE SMALL BOWEL OBSTRUCTION F/U. PATIENT STATES NO COMPLAINTS TODAY TECHNIQUE: Single AP view of the abdomen / pelvis. COMPARISON: Comparison is made with prior examination dated September 22, 2019. FINDINGS: Oral contrast is seen throughout the colon. Mild residual dilatation of the small bowel loops. The visualized liver, spleen and kidneys are grossly normal in size and morphology. Normal soft tissue structures. Normal visualized osseous structures. RAD/Abdomen Single View IMPRESSION: Oral contrast is seen within the colon. Residual small bowel dilatation. Electronically Signed: Jj Medley, at 11:40 EDT , Service support ,
--- NOTE | 2019-09-24 11:35 | PCM.PN.BLA ---
Progress Note Contrast w/in colon. Will start clear liquids. Ileana
[2019-09-24] MEDS: 0.9% Saline Lock 10 ML Syringe IV ×3 (11:47→22:55)
--- NOTE | 2019-09-24 11:57 | PCM.PN.HOSP ---
<Orlando Cheng - Last Filed: 09/24/19 11:57> Reason for Visit: abd pain Subjective: no abd pain today. small hard stools yesterday, small amount of soft stool this AM. No nausea/vomiting. still no po intake. pt up ambulating in the room. Vitals/I&O's: Vital Signs Temp Pulse Resp BP Pulse Ox 98.0 F 52 L 16 110/62 99 09/24/19 04:00 09/24/19 04:00 09/24/19 04:00 09/24/19 04:00 09/24/19 04:00 Oxygen Delivery Method Room Air Weight: 156 lb 15.506 oz Body Mass Index (BMI) 21.9 Intake and Output for Last 24 Hours 09/22/19 09/23/19 09/24/19 23:59 23:59 23:59 Intake Total 1000 / 1000 2110.00 / 2110.00 1881.67 / 1881.67 Output Total 400 / 400 Balance 1000 / 1000 1710.00 / 1710.00 1881.67 / 1881.67 General: Alert, Oriented x3, Cooperative HEENT: Atraumatic, PERRLA, EOMI, Normocephalic Neck: Supple, No JVD, Negative Carotid Bruits Lungs: Clear to auscultation, Normal air movement Cardiovascular: Regular rate, No murmurs Abdomen: Soft, Non Tender, Hypoactive Bowel Sounds Extremities: No edema, Capillary Refill Less than 3 Seconds Skin: No rashes, No breakdown Musculoskeletal: No Tenderness to Palpation of Joints or Extremities Neurological: Cranial nerves II-XII grossly intact Psych/Mental Status: Normal Affect, Appropriate, Alert and oriented to time, place, person, mood and affect Laboratory Results 09/24/19 07:56: WBC 5.2, RBC 4.52 L, Hgb 12.7 L, Hct 38.9 L, MCV 86.1, MCH 28.1, MCHC 32.6, RDW Std Deviation 40.4, RDW Coeff of Amira 13.1, Plt Count 187, MPV 10.3, Immature Gran % (Auto) 0.200, Neut % (Auto) 37.2 L, Lymph % (Auto) 42.6 H, [place] % (Auto) 13.4 H, Eos % (Auto) 5.8 H, Baso % (Auto) 0.8, Absolute Neuts (auto) 1.9 L, Absolute Lymphs (auto) 2.20, Nucleated RBC % 0 Current Medications Glucagon () 1 mg IM .X1 PRN PRN Reason: Hypoglycemia Dextrose (Dextrose 10%-Water) 250 mls @ 999 mls/hr IV .Q16M PRN; Protocol PRN Reason: HYPOGLYCEMIA Sodium Chloride () 1,000 mls @ 100 mls/hr IV .Q10H [facility] Last Infusion: 09/24/19 11:05 Dose: 100 mls/hr Documented by: Pantoprazole Sodium 40 mg/ (Sodium Chloride) 110 mls @ 330 mls/hr IV Q12 [facility] Last Infusion: 09/24/19 09:50 Dose: Infused Documented by: Metronidazole (Flagyl) 500 mg in 100 mls @ 100 mls/hr IV Q8 [facility] Last Infusion: 09/24/19 07:45 Dose: Infused Documented by: Ciprofloxacin (Cipro) 400 mg in 200 mls @ 200 mls/hr IV Q12 [facility] Last Infusion: 09/24/19 11:05 Dose: Infused Documented by: Ketorolac Tromethamine (Toradol (Bkc)) 15 mg IV Q8 [facility] Stop: 09/28/19 08:11 Last Admin: 09/24/19 06:41 Dose: 15 mg Documented by: Morphine Sulfate () 2 mg IV Q3H PRN PRN PRN Reason: Pain Score 8-10/10 Nutritional Formula (Lactose Free) (Ensure Enlive) 120 ml PO 4X/DAY [facility] Last Admin: 09/24/19 09:44 Dose: Not Given Documented by: Ondansetron HCl (Zofran) 4 mg IV Q6H PRN PRN PRN Reason: NAUSEA/VOMITING Prochlorperazine Edisylate (Compazine Iv) 5 mg IV Q4H PRN PRN PRN Reason: Breakthrough nausea/vomiting Sodium Chloride () 10 - 40 ml IV UD PRN PRN Reason: SALINE FLUSH Last Admin: 09/24/19 11:47 Dose: 10 ml Documented by: Medical Necessity - Tobacco Use Smoking Status: Current some day smoker Tobacco Use: Cigarettes Assessment/Plan 1. Crohn's, small bowel obstruction - pain resolved, No nausea. BMs x2 as above. No fever/chills. Surgery following. KUB shows contrast in the colon, diet advanced to clears. DC planning: cautiously advance diet, likely home tomorrow. This patient was seen by Orlando Cheng PA-C under the supervision of Dr. Smith. <Jeri Smith E - Last Filed: 09/24/19 12:11> Vitals/I&O's: Vital Signs Temp Pulse Resp BP Pulse Ox 98.0 F 52 L 16 110/62 99 09/24/19 04:00 09/24/19 04:00 09/24/19 04:00 09/24/19 04:00 09/24/19 04:00 Oxygen Delivery Method Room Air Weight: 156 lb 15.506 oz Body Mass Index (BMI) 21.9 Intake and Output for Last 24 Hours 09/22/19 09/23/19 09/24/19 23:59 23:59 23:59 Intake Total 1000 / 1000 2110.00 / 2110.00 1881.67 / 1881.67 Output Total 400 / 400 Balance 1000 / 1000 1710.00 / 1710.00 1881.67 / 1881.67 Laboratory Results 09/24/19 07:56: WBC 5.2, RBC 4.52 L, Hgb 12.7 L, Hct 38.9 L, MCV 86.1, MCH 28.1, MCHC 32.6, RDW Std Deviation 40.4, RDW Coeff of Amira 13.1, Plt Count 187, MPV 10.3, Immature Gran % (Auto) 0.200, Neut % (Auto) 37.2 L, Lymph % (Auto) 42.6 H, [place] % (Auto) 13.4 H, Eos % (Auto) 5.8 H, Baso % (Auto) 0.8, Absolute Neuts (auto) 1.9 L, Absolute Lymphs (auto) 2.20, Nucleated RBC % 0 Current Medications Glucagon () 1 mg IM .X1 PRN PRN Reason: Hypoglycemia Dextrose (Dextrose 10%-Water) 250 mls @ 999 mls/hr IV .Q16M PRN; Protocol PRN Reason: HYPOGLYCEMIA Sodium Chloride () 1,000 mls @ 100 mls/hr IV .Q10H [facility] Last Infusion: 09/24/19 11:05 Dose: 100 mls/hr Documented by: Pantoprazole Sodium 40 mg/ (Sodium Chloride) 110 mls @ 330 mls/hr IV Q12 [facility] Last Infusion: 09/24/19 09:50 Dose: Infused Documented by: Metronidazole (Flagyl) 500 mg in 100 mls @ 100 mls/hr IV Q8 [facility] Last Infusion: 09/24/19 07:45 Dose: Infused Documented by: Ciprofloxacin (Cipro) 400 mg in 200 mls @ 200 mls/hr IV Q12 [facility] Last Infusion: 09/24/19 11:05 Dose: Infused Documented by: Ketorolac Tromethamine (Toradol (Bkc)) 15 mg IV Q8 [facility] Stop: 09/28/19 08:11 Last Admin: 09/24/19 06:41 Dose: 15 mg Documented by: Morphine Sulfate () 2 mg IV Q3H PRN PRN PRN Reason: Pain Score 8-10/10 Nutritional Formula (Lactose Free) (Ensure Enlive) 120 ml PO 4X/DAY [facility] Last Admin: 09/24/19 09:44 Dose: Not Given Documented by: Ondansetron HCl (Zofran) 4 mg IV Q6H PRN PRN PRN Reason: NAUSEA/VOMITING Prochlorperazine Edisylate (Compazine Iv) 5 mg IV Q4H PRN PRN PRN Reason: Breakthrough nausea/vomiting Sodium Chloride () 10 - 40 ml IV UD PRN PRN Reason: SALINE FLUSH Last Admin: 09/24/19 11:47 Dose: 10 ml Documented by: Assessment/Plan Hospitalist note: I am seeing this patient in conjunction with Orlando Cheng. I independently seen and examined the patient. Progress note above, laboratory data and imaging studies reviewed and I concur with the above treatment plan with the notes below. Today, patient denied abdominal pain. No nausea or vomiting. He had a bowel movement with very small amount of stool. Has been passing flatus intermittently. Denies fever chills. Vital signs are stable. - Physical Exam General: Alert, Oriented x3, Cooperative, No apparent distress. HEENT: Atraumatic, PERRLA, EOMI. Neck: Supple, No JVD, Negative Carotid Bruits, Trachea Midline, Thyroid Normal. Lungs: Clear to auscultation, Normal air movement, No rhonchi, No wheeze, No rales. Cardiovascular: Regular rate, Regular Rhythm, Normal S1, Normal S2, PMI Normal. Abdomen: Bowel Sounds Present, Soft, minimal tender, Non-Distended, No Hepato-splenomegaly, no guarding or rigidity. Extremities: No clubbing, No cyanosis, No edema Skin: No rashes, No breakdown Neurological: Cranial nerves are intact, neuro grossly intact Vital Signs are stable. Assessment and plan: #1 abdominal pain/terminal ileitis: He is on IV ciprofloxacin and Flagyl. Crohn's disease is in the differential diagnosis but this ileitis can be caused by other etiologies such as infectious ileitis due to viruses or bacteria. Patient reported improvement of her symptoms. LFT and lipase were unremarkable except bilirubin which was 1.4 today. ESR was normal. Plan to continue same treatment, start clear liquids. #2 probable small bowel obstruction: Remained on n.p.o., IV fluids and IV pain medications. KUB from today reviewed, contrast in the colon.. General surgery on the case. Plan to start clear liquids, ambulate. #3 DVT prophylaxis: Low risk patient, no prophylaxis indicated, ambulate. This note was generated with [employer] dictation software. It may contain incorrect words, spelling, and punctuation that were not noted in checking the note before signing. Inpatient E&M: 71873 Subs Hosp L2
[2019-09-24 14:03] VITALS: BP 126/73; PULSE 57; RESP 16; TEMP 36.1; O2SAT 100
[2019-09-24 22:54] VITALS: BP 125/67; PULSE 62; RESP 16; TEMP 36.6; O2SAT 97
[2019-09-25 04:17] VITALS: BP 124/76; PULSE 63; RESP 16; TEMP 37; O2SAT 97
--- NOTE | 2019-09-25 05:53 | PCM.PN.SRG ---
Subjective: The patient tolerated clear liquids yesterday. Some very slight nausea last night. Very small amount of stool. Not significant amounts of flatus. He denies current nausea or abdominal pain - Physical Exam Vitals/I&O's: Vital Signs Temp Pulse Resp BP Pulse Ox 98.6 F 63 16 124/76 H 97 09/25/19 04:17 09/25/19 04:17 09/25/19 04:17 09/25/19 04:17 09/25/19 04:17 Oxygen Delivery Method Room Air Weight: 156 lb 15.506 oz Body Mass Index (BMI) 21.9 Intake and Output for Last 24 Hours 09/23/19 09/24/19 09/25/19 23:59 23:59 23:59 Intake Total 2110.00 / 2110.00 3398.33 / 3398.33 200 / 200 Output Total 400 / 400 Balance 1710.00 / 1710.00 3398.33 / 3398.33 200 / 200 Abdomen: Soft, Non Tender, Hypoactive Bowel Sounds Laboratory Results 09/24/19 07:56: WBC 5.2, RBC 4.52 L, Hgb 12.7 L, Hct 38.9 L, MCV 86.1, MCH 28.1, MCHC 32.6, RDW Std Deviation 40.4, RDW Coeff of Amira 13.1, Plt Count 187, MPV 10.3, Immature Gran % (Auto) 0.200, Neut % (Auto) 37.2 L, Lymph % (Auto) 42.6 H, [place] % (Auto) 13.4 H, Eos % (Auto) 5.8 H, Baso % (Auto) 0.8, Absolute Neuts (auto) 1.9 L, Absolute Lymphs (auto) 2.20, Nucleated RBC % 0 Current Medications Glucagon () 1 mg IM .X1 PRN PRN Reason: Hypoglycemia Dextrose (Dextrose 10%-Water) 250 mls @ 999 mls/hr IV .Q16M PRN; Protocol PRN Reason: HYPOGLYCEMIA Sodium Chloride () 1,000 mls @ 100 mls/hr IV .Q10H [facility] Last Infusion: 09/25/19 00:02 Dose: 100 mls/hr Documented by: Pantoprazole Sodium 40 mg/ (Sodium Chloride) 110 mls @ 330 mls/hr IV Q12 [facility] Last Infusion: 09/24/19 23:17 Dose: Infused Documented by: Metronidazole (Flagyl) 500 mg in 100 mls @ 100 mls/hr IV Q8 [facility] Last Infusion: 09/24/19 23:53 Dose: Infused Documented by: Ciprofloxacin (Cipro) 400 mg in 200 mls @ 200 mls/hr IV Q12 [facility] Last Infusion: 09/25/19 00:02 Dose: Infused Documented by: Ketorolac Tromethamine (Toradol (Bkc)) 15 mg IV Q8 [facility] Stop: 09/28/19 08:11 Last Admin: 09/24/19 22:55 Dose: 15 mg Documented by: Morphine Sulfate () 2 mg IV Q3H PRN PRN PRN Reason: Pain Score 8-10/10 Nutritional Formula (Lactose Free) (Ensure Clear) 120 ml PO 4X/DAY [facility] Ondansetron HCl (Zofran) 4 mg IV Q6H PRN PRN PRN Reason: NAUSEA/VOMITING Prochlorperazine Edisylate (Compazine Iv) 5 mg IV Q4H PRN PRN PRN Reason: Breakthrough nausea/vomiting Sodium Chloride () 10 - 40 ml IV UD PRN PRN Reason: SALINE FLUSH Last Admin: 09/24/19 22:55 Dose: 10 ml Documented by: Medical Necessity - Tobacco Use Smoking Status: Current some day smoker Tobacco Use: Cigarettes Assessment/Plan I will advance his diet to full liquids. Tentative diagnosis remains Crohn's disease. He appears to be making slow progress. If he tolerates a full liquid diet and is able to stay hydrated then I would think that discharge would be feasible with recommendations for nutritional supplements and outpatient gastroenterology follow-up at a very short time interval
[2019-09-25] MEDS: Ketorolac 15 MG/ML Vial IV (06:14)
[2019-09-25] MEDS: metroNIDAZOLE 500 MG/100 ML BAG 100 MG IV (06:14)
[2019-09-25 07:04] LABS: Absolute Lymphocyte Count 2.39 X10^3/uL (0.83-4.51); Absolute Neutrophil Count 2.1 X10^3/uL (2.0-7.7); Basophil# 0.03 X10^3/uL; Basophil% 0.5 % (0-1); Eosinophil# 0.41 X10^3/uL; Eosinophils% 7.3 % (0-5); Hematocrit 39.8 % (40-54); Hemoglobin 13.3 g/dL (13.0-16.5); Lymphocyte # 2.39 X10^3/ul (4.0); Lymphocyte % 42.6 % (19-41); Mean Corp Hgb Conc 33.4 g/dL (32-36); Mean Corpuscular Hgb 28.3 pg (27.0-32.0); Mean Corpuscular Volume 84.7 fL (80-94); Mean Platelet Vol. 9.9 fl (6.2-12.0); Monocyte# 0.66 X10^3/uL; Monocyte% 11.8 % (0-10); NRBC Flagged by Analyzer 0 % (0-5); Neutrophil # 2.11 X10^3/uL (2.7-7.7); Neutrophil % 37.6 % (47-70); Platelet Count 197 K/mm3 (150-450); RBC Distribution Width CV 12.4 % (11.6-14.6); RBC Distribution Width SD 37.6 fl (35.1-43.9); White Blood Count 5.6 K/mm3 (4.4-11.0)
[2019-09-25 07:34] VITALS: O2SAT 98
[2019-09-25 07:46] LABS: Anion Gap 6 (5-15); BUN 14 mg/dL (7-18); BUN/Creat Ratio 17.1 RATIO (10-20); Calcium,Total 8.2 mg/dL (8.5-10.1); Chloride 108 mmol/L (98-107); Creatinine, Serum 0.82 mg/dL (0.70-1.30); EST Glomerular Filtration Rate 126 mL/min (>60); Est Glom Filt Rate - Afr Amer 153 mL/min (>60); Estimated Creatinine Clearance 143.51 ml/min; Glucose 92 mg/dL (74-106); Potassium 3.8 mmol/L (3.5-5.1); Sodium Level 141 mmol/L (136-145)
--- NOTE | 2019-09-25 10:51 | DCINST_ITS ---
You will use the following diet at home:: No restrictions, Other - slowly advance to normal diet, starting with bland soft foods and advancing as tolerated. Your food should be the consistency of: Regular Your liquids should be the consistency of: Regular/Thin Discharge Activity: Return to Normal Activity Instructions: Lifestyle Management of Crohn's Disease, Crohn's Disease Allergies/Adverse Reactions: Allergies No Known Allergies Allergy (Verified 09/22/19 19:22) Medications to take at Discharge Ciprofloxacin [Cipro] 500 mg PO BID #20 tab 09/25/19 Metronidazole [Flagyl] 500 mg PO TID #30 tab 09/25/19 The following prescriptions were given: Ciprofloxacin [Cipro] 500 mg PO BID #20 tab Transmission Status: Pending to [facility] Metronidazole [Flagyl] 500 mg PO TID #30 tab Transmission Status: Pending to [facility] Primary Care Physician: Ciaran Lombardo MD [STAFF PHYSICIAN] - Test Results: Test results from this visit will be discussed in further detail at your follow- up appointment, if applicable. Please Follow Up With: [facility] - or GI of your choice. When: 2 weeks Proposed Discharge Date: 09/25/19
[2019-09-25] MEDS: 0.9% Saline Lock 10 ML Syringe IV (10:55)
[2019-09-25] MEDS: Ciprofloxacin 400 MG/200 ML BAG 200 MG IV (10:56)
[2019-09-25] MEDS: 0.9% Normal Saline 1,000 ML 100 ML IV (10:59)
[2019-09-25 11:03] VITALS: BP 121/74; PULSE 54; RESP 18; TEMP 36.5; O2SAT 100
[2019-09-25] MEDS: Ensure Clear 120 ML Liquid PO (11:05)
--- NOTE | 2019-09-25 11:42 | PCM.DC.SUM ---
<Orlando Cheng - Last Filed: 09/25/19 11:42> Discharge Date and Diagnosis Date of Admission: 09/22/19 Date of Discharge: 09/25/19 - Primary Discharge Diagnosis SBO associated with Crohn's disease Possible colitis. Hospital Course and Treatment Imaging Results: CT/Abdomen/Pelvis WITH Contrast IMPRESSION: 1. No small bowel dilatation to the terminal ileum which appears to be thick walled and narrowed. Question Crohn''s disease. 2. Distended stomach. This is thought to be secondary to small bowel obstruction. 3. Otherwise normal CT of the abdomen and pelvis. RAD/Acute Abdomen Inc Chest IMPRESSION: Probable ileus. Cannot definitively exclude early small bowel obstruction. Clinical correlation recommended RAD/Abdomen Single View IMPRESSION: Oral contrast is seen within the colon. Residual small bowel dilatation. Consults: Gen Surgery - [place] Operations: None Procedures: None Summary of Care Provided: Hospital course: The patient is a 19 year old M with no significant past medical history who presented to the ER with c/o abdominal pain. He reported that it occurred for about a month, described as excruciating left upper quadrant pain radiating into the right upper quadrant, with nausea vomiting and diarrhea. He had been prescribed Bentyl after being seen in the hospital recently, later about 2 weeks prior to this presentation he was at [facility] and had a CT of the abdomen which was reportedly normal. When he came to the ER this time CT showed possible Crohn's disease small bowel obstruction. He had an elevated white count. He was admitted to the medical surgical floor, surgery was consulted. He was made n.p.o. and given supportive care. He was placed on IV Cipro and Flagyl. He had slow gradual improvement over 4 days of admission. Follow up imaging showed clearing of obstruction. He eventually was able to move his bowels, developed good bowel sounds, and had his diet advanced. As he likely has Crohn's disease we recommended he have close follow-up with gastroenterology ideally within 2 weeks. He wants to follow-up with a [facility] in [place] and he was given the number for [facility], he may follow-up with whichever [facility] that he desires. He was given information regarding Crohn's disease and a Crohn's friendly diet. He was discharged home in stable condition. He will need to complete a total of 14 days of antibiotics. He will also need to follow-up with his PCP in 1 to 2 weeks. This patient was seen by Orlando Cheng PA-C under the supervision of Doctor Sarah. [] - Physical Exam Vitals/I&O's: Vital Signs Temp Pulse Resp BP Pulse Ox 97.7 F L 54 L 18 121/74 H 100 09/25/19 11:03 09/25/19 11:03 09/25/19 11:03 09/25/19 11:03 09/25/19 11:03 Oxygen Delivery Method Room Air Weight: 156 lb 15.506 oz Body Mass Index (BMI) 21.9 Intake and Output for Last 24 Hours 09/23/19 09/24/19 09/25/19 23:59 23:59 23:59 Intake Total 2110.00 / 2110.00 3398.33 / 3398.33 1683.34 / 1683.34 Output Total 400 / 400 Balance 1710.00 / 1710.00 3398.33 / 3398.33 1683.34 / 1683.34 General: Alert, Oriented x3, Cooperative HEENT: Atraumatic, PERRLA, EOMI, Normocephalic Neck: Supple, No JVD, Negative Carotid Bruits Lungs: Clear to auscultation, Normal air movement Cardiovascular: Regular rate, No murmurs Abdomen: Bowel Sounds Present, Soft, Non Tender Extremities: No edema, Capillary Refill Less than 3 Seconds Skin: No rashes, No breakdown Musculoskeletal: No Tenderness to Palpation of Joints or Extremities Neurological: Cranial nerves II-XII grossly intact Psych/Mental Status: Normal Affect, Appropriate, Alert and oriented to time, place, person, mood and affect Laboratory Results 09/25/19 06:54: WBC 5.6, RBC 4.70, Hgb 13.3, Hct 39.8 L, MCV 84.7, MCH 28.3, MCHC 33.4, RDW Std Deviation 37.6, RDW Coeff of Amira 12.4, Plt Count 197, MPV 9.9, Immature Gran % (Auto) 0.200, Neut % (Auto) 37.6 L, Lymph % (Auto) 42.6 H, [place] % (Auto) 11.8 H, Eos % (Auto) 7.3 H, Baso % (Auto) 0.5, Absolute Neuts (auto) 2.1, Absolute Lymphs (auto) 2.39, Nucleated RBC % 0 09/25/19 06:54: Sodium 141, Potassium 3.8, Chloride 108 H, Carbon Dioxide 27.0, Anion Gap 6, BUN 14, Creatinine 0.82, Estim Creat Clear Calc 143.51, Est GFR (MDRD) Af Amer 153, Est GFR (MDRD) Non-Af 126, BUN/Creatinine Ratio 17.1, Glucose 92, Calcium 8.2 L Current Medications Glucagon () 1 mg IM .X1 PRN PRN Reason: Hypoglycemia Dextrose (Dextrose 10%-Water) 250 mls @ 999 mls/hr IV .Q16M PRN; Protocol PRN Reason: HYPOGLYCEMIA Sodium Chloride () 1,000 mls @ 100 mls/hr IV .Q10H [facility] Last Infusion: 09/25/19 11:00 Dose: 0 mls/hr Documented by: Pantoprazole Sodium 40 mg/ (Sodium Chloride) 110 mls @ 330 mls/hr IV Q12 [facility] Last Admin: 09/25/19 10:51 Dose: 330 mls/hr Documented by: Metronidazole (Flagyl) 500 mg in 100 mls @ 100 mls/hr IV Q8 [facility] Last Infusion: 09/25/19 07:15 Dose: Infused Documented by: Ciprofloxacin (Cipro) 400 mg in 200 mls @ 200 mls/hr IV Q12 [facility] Last Admin: 09/25/19 10:56 Dose: 200 mls/hr Documented by: Ketorolac Tromethamine (Toradol (Bkc)) 15 mg IV Q8 [facility] Stop: 09/28/19 08:11 Last Admin: 09/25/19 06:14 Dose: 15 mg Documented by: Morphine Sulfate () 2 mg IV Q3H PRN PRN PRN Reason: Pain Score 8-10/10 Nutritional Formula (Lactose Free) (Ensure Clear) 120 ml PO 4X/DAY [facility] Last Admin: 09/25/19 11:05 Dose: 120 ml Documented by: Ondansetron HCl (Zofran) 4 mg IV Q6H PRN PRN PRN Reason: NAUSEA/VOMITING Prochlorperazine Edisylate (Compazine Iv) 5 mg IV Q4H PRN PRN PRN Reason: Breakthrough nausea/vomiting Sodium Chloride () 10 - 40 ml IV UD PRN PRN Reason: SALINE FLUSH Last Admin: 09/25/19 10:55 Dose: 10 ml Documented by: Discharge Diet: No Restrictions, - - Gradually advance to normal diet as tolerated, follow Crohn's recommendations. Discharge Activity: Return to Normal Activity Home Medications: Medications to take at Discharge Ciprofloxacin [Cipro] 500 mg PO BID #20 tab 09/25/19 Metronidazole [Flagyl] 500 mg PO TID #30 tab 09/25/19 Following Prescrptions Were Given to Patient: Ciprofloxacin [Cipro] 500 mg PO BID #20 tab Transmission Status: Received by [facility] Metronidazole [Flagyl] 500 mg PO TID #30 tab Transmission Status: Received by [facility] Primary Care Physician: Ciaran Lombardo MD [STAFF PHYSICIAN] - Please follow up with your Primary Care Physician in: 1-2 weeks Please Follow Up With: [facility] - or GI of your choice. When: 2 weeks Patient Instructions: Crohn's Disease, Lifestyle Management of Crohn's Disease Disposition: Home Minutes spent on discharge:: 35 Patient Condition:: Stable Medical Necessity - Tobacco Use Smoking Status: Current some day smoker Tobacco Use: Cigarettes Meaningful Use Info Meaningful Use Diagnoses (Choose all that apply): None applicable <AlexanderrodrigotessyAnajessica Spangler - Last Filed: 09/25/19 13:29> Hospital Course and Treatment Summary of Care Provided: Hospitalist note: Discharge summary above reviewed and I concur with above discharge and treatment plan. Patient was admitted because of abdominal pain that has been going on for several weeks along with good stool. CT scan abdomen and pelvis with contrast revealed thick-walled and now with terminal ileum consistent with terminal ileitis. There was a concern that patient may have Crohn's disease. KUB revealed probable ileus versus early small bowel obstruction. Patient was treated conservatively with IV ciprofloxacin and Flagyl, kept on n.p.o. with IV fluids and IV pain medications. General surgery consulted and recommended conservative treatment. Routine blood work was unremarkable. LFT revealed bilirubin of 1.7, otherwise normal. Lipase was normal. ESR was normal. With treatment with IV antibiotics, patient symptoms improved. He has been passing flatus and have bowel movement with some amount of stool. He had no more abdominal pain, remained afebrile. Patient was started on clear liquids and then advanced to full liquid diet and he did very well. There is still concern that patient may have Crohn's disease. Patient discharged home in a stable condition, discharged on ciprofloxacin twice daily and Flagyl 3 times daily for 10 days of treatment to complete total of 14 days of treatment, recommended referral to GI as outpatient for further work-up regarding probable Crohn's disease, recommended follow-up with PCP in 1 to 2 weeks. - Physical Exam General: Alert, Oriented x3, Cooperative, No apparent distress. HEENT: Atraumatic, PERRLA, EOMI. Neck: Supple, No JVD, Negative Carotid Bruits, Trachea Midline, Thyroid Normal. Lungs: Clear to auscultation, Normal air movement, No rhonchi, No wheeze, No rales. Cardiovascular: Regular rate, Regular Rhythm, Normal S1, Normal S2, PMI Normal. Abdomen: Bowel Sounds Present, Soft, Non Tender, Non-Distended, No Hepato-splenomegaly. Extremities: No clubbing, No cyanosis, No edema Skin: No rashes, No breakdown Neurological: Neuro grossly intact Vital Signs are stable. This note was generated with [employer] dictation software. It may contain incorrect words, spelling, and punctuation that were not noted in checking the note before signing. - Physical Exam Vitals/I&O's: Vital Signs Temp Pulse Resp BP Pulse Ox 97.7 F L 54 L 18 121/74 H 100 09/25/19 11:03 09/25/19 11:03 09/25/19 11:03 09/25/19 11:03 09/25/19 11:03 Oxygen Delivery Method Room Air Weight: 156 lb 15.506 oz Body Mass Index (BMI) 21.9 Intake and Output for Last 24 Hours 09/23/19 09/24/19 09/25/19 23:59 23:59 23:59 Intake Total 2110.00 / 2110.00 3398.33 / 3398.33 / Output Total 400 / 400 Balance 1710.00 / 1710.00 3398.33 / 3398.33 / Laboratory Results 09/25/19 06:54: WBC 5.6, RBC 4.70, Hgb 13.3, Hct 39.8 L, MCV 84.7, MCH 28.3, MCHC 33.4, RDW Std Deviation 37.6, RDW Coeff of Amira 12.4, Plt Count 197, MPV 9.9, Immature Gran % (Auto) 0.200, Neut % (Auto) 37.6 L, Lymph % (Auto) 42.6 H, [place] % (Auto) 11.8 H, Eos % (Auto) 7.3 H, Baso % (Auto) 0.5, Absolute Neuts (auto) 2.1, Absolute Lymphs (auto) 2.39, Nucleated RBC % 0 09/25/19 06:54: Sodium 141, Potassium 3.8, Chloride 108 H, Carbon Dioxide 27.0, Anion Gap 6, BUN 14, Creatinine 0.82, Estim Creat Clear Calc 143.51, Est GFR (MDRD) Af Amer 153, Est GFR (MDRD) Non-Af 126, BUN/Creatinine Ratio 17.1, Glucose 92, Calcium 8.2 L Disposition: Home Minutes spent on discharge:: 28 Patient Condition:: Stable Meaningful Use Info Meaningful Use Diagnoses (Choose all that apply): None applicable Inpatient E&M: 43131 Disch Hosp
== END 2019-09-25 12:55 | disposition home or self-care (01) | DRG 387 ==
LOC: ED 23:34 → MS3 09-23 00:11
PROVIDERS: Physician Assistant; Surgery; Admitting Provider Hospitalist; Emergency Provider Emergency Medicine; PCP Family Medicine; Visit Provider Hospitalist
DX: K50.012 Crohn's disease of small intestine with intestinal obstruction (principal); K52.9 Noninfective gastroenteritis and colitis, unspecified; F17.210 Nicotine dependence, cigarettes, uncomplicated; Z83.79 Family history of other diseases of the digestive system
CPT/HCPCS: 36415; 74018; 74022; 74177; 80048; 80053; 81001; 83690; 85025; 85652; 97802; 99285; J7030; Q9967; A4216; J0744; J2405